=== PATIENT | female | born 1970 | race Caucasian/White ===

== ENCOUNTER 2016-06-28 07:22 | Day surgery (SDC) | payer BC, OTHER ==
[2016-06-28] MEDS ORDERED: CEFAZOLIN SODIUM 2 GRAM PREMIX 100 ML IV PRN (07:30)
[2016-06-28] MEDS ORDERED: LACTATED RINGERS 1,000 ML ONE (07:38)
[2016-06-28] MEDS ORDERED: IV START KIT ONE (07:38)
[2016-06-28] MEDS ORDERED: CEFAZOLIN SODIUM 2 GRAM PREMIX 100 ML IV ONE (07:39)
[2016-06-28] MEDS ORDERED: ONDANSETRON 4 MG/2ML 2 ML VIAL ONE (07:43)
[2016-06-28] MEDS ORDERED: KETOROLAC TROMETHAMINE 30 MG/ML 1 ML VIAL ONE (07:43)
[2016-06-28] MEDS ORDERED: PROPOFOL 20 ML IV ONE (07:43)
[2016-06-28] MEDS ORDERED: MIDAZOLAM HCL 5 MG/5 ML VIAL ONE (07:43)
[2016-06-28] MEDS ORDERED: DEXAMETHASONE SOD PHOS 4 MG/1 ML VIAL ONE (07:43)
[2016-06-28] MEDS ORDERED: LIDOCAINE 2% (MULTI DOSE) 10 ML VIAL ONE (07:43)
[2016-06-28] MEDS ORDERED: ROCURONIUM BROMIDE 10 MG/ML DOSE IV ONE (07:43)
[2016-06-28] MEDS ORDERED: FENTANYL 250 MCG/5 ML AMP ONE (07:43)
[2016-06-28] MEDS ORDERED: BUPIVACAINE 0.5% W/EPI SDV 30 ML VIAL ONE (07:56)
[2016-06-28] MEDS ORDERED: IOPAMIDOL 300 (61%) 30 ML SDV ONE (07:57)
[2016-06-28] MEDS ORDERED: SODIUM CHLORIDE 0.9% 50 ML ONE (07:57)
[2016-06-28] MEDS ORDERED: FAMOTIDINE 10 MG/ML 2ML VIAL ONE (08:18)
[2016-06-28] MEDS ORDERED: DIPHENHYDRAMINE HCL 50 MG/1 ML VIAL ONE (08:18)
[2016-06-28] MEDS ORDERED: FENTANYL 100 MCG/2 ML VIAL IV PRN (09:20)
[2016-06-28] MEDS ORDERED: PROMETHAZINE HCL 25 MG/ML VIAL IM PRN (09:20)
[2016-06-28] MEDS ORDERED: ONDANSETRON 4 MG/2ML 2 ML VIAL IV PRN ×2 (09:20→10:54)
[2016-06-28] MEDS ORDERED: HYDROMORPHONE HCL 1 MG/ML SYRINGE IV PRN (09:20)
[2016-06-28] MEDS ORDERED: LACTATED RINGERS 1,000 ML IV SCH (09:30)
--- NOTE | 2016-06-28 09:58 | RAD ---
CHOLANGIOGRAM-OPERATIVE HISTORY: Intraoperative cholangiogram COMPARISONS: Abdominal ultrasound 05/13/2016 FINDINGS: 5 overhead fluoroscopic images are provided for review. These images demonstrate anterograde cannulization and opacification of the cystic duct remnant, common bile duct and reflux into the intrahepatic biliary radicles. Contrast is noted within the duodenum. No filling defect is present. Surgical hardware is noted within the field of view. Fluoroscopy time: 17.7 seconds IMPRESSION: Intraoperative cholangiogram as above. Please see surgeon's note regarding the details of the procedure.
[2016-06-28] MEDS ORDERED: GLYCOPYRROLATE 0.2 MG/ML 1ML VIAL ONE (10:12)
[2016-06-28] MEDS ORDERED: NEOSTIGMINE METHYLSULFATE 1 MG/ML DOSE ONE (10:12)
[2016-06-28] MEDS ORDERED: FENTANYL 100 MCG/2 ML VIAL ONE (10:27)
[2016-06-28] MEDS ORDERED: KETOROLAC TROMETHAMINE 30 MG/ML 1 ML VIAL IV PRN (10:54)
[2016-06-28] MEDS ORDERED: ACETAMINOPHEN 325 MG TABLET PO PRN (10:54)
[2016-06-28] MEDS ORDERED: OXYCODONE HCL 5 MG TABLET PO PRN (10:54)
[2016-06-28] MEDS ORDERED: DIPHENHYDRAMINE HCL 50 MG/1 ML VIAL IV PRN (10:54)
[2016-06-28] MEDS ORDERED: MORPHINE SULFATE 2 MG/ML SYRINGE IV PRN (10:54)
[2016-06-28] MEDS ORDERED: OXYCODONE HCL 5 MG TABLET ONE (11:15)
--- NOTE | 2016-06-28 16:40 | OP ---
JESSICA ADAMS [id number] DATE OF OPERATION: June 28, 2016 PREOPERATIVE DIAGNOSIS: Chronic cholecystitis with cholelithiasis. POSTOPERATIVE DIAGNOSIS: Chronic cholecystitis with cholelithiasis. PROCEDURE: LAPAROSCOPIC CHOLECYSTECTOMY WITH INTRAOPERATIVE CHOLANGIOGRAM. SURGEON: Remberto Karimi M.D. MANAGER ANALYTICAL: Les Ruiz ANESTHESIA: General endotracheal by Kailey Vargas C.R.N.A. INDICATIONS: A 46-year-old female who has symptoms of chronic biliary colic and has ultrasound evidence of cholelithiasis. She presents for elective cholecystectomy. DESCRIPTION: With informed consent she was taken to the operating room. She was laid supine on the operating room table. General endotracheal anesthetic was administered. The abdomen was prepped and draped in the usual fashion. Local anesthetic was administered below the umbilicus. An incision was made. The fascia was grasped with Car clamps and divided with curved Nieto scissors. Sutures of Surgilon were placed in the fascial edges and a Mahin port was placed. A pneumoperitoneum was created. Local anesthetic was administered in the mid epigastrium and along the right lateral abdominal wall. Incisions were made. The 5 mm ports were placed. The fundus of the gallbladder was grasped and retracted cephalad. There were adhesions of omentum to the gallbladder. This was taken down with blunt dissection. The infundibulum was retracted laterally. The cystic duct was identified and dissected free. A clip was placed. The duct was partially transected. A cholangiogram catheter was placed. This was clipped in place. Cholangiogram was obtained showing flow of contrast into the duodenum without filling defect. 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 The catheter was removed. Two clips were placed on the cystic duct stump and it was completely transected. Next, the cystic artery was identified and dissected free. Three clips were placed, and it was transected leaving two clips on the stump. The gallbladder was then taken off the liver bed using electrocautery. Once , it was placed within an EndoCatch bag and removed through the infraumbilical port site. The right upper quadrant was irrigated. Hemostasis was insured. Ports were removed, and the pneumoperitoneum was evacuated. The infraumbilical fascial defect was closed with [id number] sutures of #0 Surgilon. The other fascial defects were small. Skin was closed with subcuticular #4-0 Monocryl. Some Skin Affix was placed over that because of a tape allergy. She tolerated the procedure, was extubated and taken to the recovery room in stable condition. Note was made that needle, instrument and lap counts were correct at the time of closure. Cc: Leann Blunt M.D.
--- NOTE | 2016-06-30 11:54 | SURGPATH ---
[facility] [address] [place] [id number] Patient Name: JESSICA ADAMS MR#: [id number] : 1970 Gender: F Specimen #: [id number] Collected: 06/28/2016 Received: 06/29/2016 Reported: 06/30/2016 Submitting Phys: BUTCH BENJAMIN Copy To Phys: [facility] Clinical History / Pre-Operative Diagnosis: Cholecystitis; cholelithiasis Specimen Source / Surgical Procedure Performed: Gallbladder Interpretation: GALLBLADDER, CHOLECYSTECTOMY: - CHRONIC CHOLECYSTITIS AND CHOLELITHIASIS Electronically Signed Out Jabier Lane M.D. Gross Description: The specimen is received in a formalin filled container labeled with the patient's name and "gallbladder". An intact and engorged gallbladder is 8.5 x 3.5 cm. The serosa is smooth and miller. The wall averages 0.3 cm. The mucosa is green miller and velvety and has a diffuse covering of slightly raised yellow flecks. There is no nodule or induration. The lumen contains a copious amount of thick, dark green bile and multiple irregular, pale yellow calculi up to 1.7 cm. Three claims service representative sections are submitted in one cassette including a cross section through the cystic duct surgical margin, a central cross section and a longitudinal section through the fundus. Brittney Knox Microscopic Description: The slide contains portions of gallbladder with glands that extend into the fibromuscular wall. There is patchy chronic inflammation. 1: [id number] K81.1
== END 2016-06-28 19:08 | disposition home or self-care (01) ==
LOC: SDC 07:22
PROVIDERS: ATTEND Surgery
PROC: 0FT44ZZ Resection of Gallbladder, Percutaneous Endoscopic Approach (ICD-10-PCS; principal; 2016-06-28)
PROC: BF141ZZ Fluoroscopy of Gallbladder, Bile Ducts and Pancreatic Ducts using Low Osmolar Contrast (ICD-10-PCS; 2016-06-28)
DX: K80.10 Calculus of gallbladder with chronic cholecystitis without obstruction (principal); K58.9 Irritable bowel syndrome, unspecified; F41.9 Anxiety disorder, unspecified; Z91.040 Latex allergy status
CPT/HCPCS: 47563; 74300; J1200; J3010 ×2; J1100; A9270; J1885; J2250; J2405; J7120; J7030; Q9967; J2001; J0690